=== PATIENT | female | born 1995 | race Caucasian/White ===

== ENCOUNTER → 2018-11-07 | Outpatient (CLI) | payer OTHER ==
--- NOTE | 2018-11-08 07:59 | Diagnostic Imaging Report ---
INDICATION: survey. TECHNIQUE: Multiple real-time grayscale images were obtained over the gravid uterus. COMPARISON: There are no prior studies available for comparison. FINDINGS: There is a single live fetus in breech presentation. heart motion was noted and a rate of 154 bpm was recorded. There were no abnormalities identified. The placenta is posterior and there is no previa. The amniotic fluid volume is within normal limits. The growth parameters are fairly uniform. The cervix was identified and measures 4.4 cm in length. IMPRESSION: 1. There is a single live fetus of approximately 19 weeks 2 days gestation +/- one week. The EDC is April 01, 2019. 2. There were no abnormalities identified. 3. The growth parameters are fairly uniform. Biometrical measurements are as follows: Biparietal 4.27 cm, age 19 weeks 0 days. Head circumference 16.31 cm, age 19 weeks 1 days. Abdominal circumference 13.73 cm, age 19 weeks 2 days. Femur length 2.97 cm, age 19 weeks 2 days. Sonographic estimate age: 19 weeks 2 days. Sonographic estimated date of delivery: 04/01/2019. Estimated Weight: 276 gm (+/- 40 gm). LMP percentile: 45%. heart rate: 154 beats per minute. number: 1 of 1. Dictated by: Dictated on workstation # [id number]
== END ==
LOC: RAD 14:20
PROVIDERS: ATTEND Obstetrics & Gynecology
DX: Z36.89 Encounter for other specified antenatal screening (principal); Z3A.19 19 weeks gestation of pregnancy
CPT/HCPCS: 76805

== ENCOUNTER 2019-03-09 12:42 | Inpatient (IN) | payer OTHER ==
[~2019-03-09] VITALS: Ht 162.6 cm; Wt 105.0 kg
[2019-03-09] VITALS (33 sets, daily range): BP systolic 91–165; BP diastolic 50–94
--- NOTE | 2019-03-09 12:20 | NUR ---
VANDANA QURESHI presented to unit from home, accompanied by Significant Other, with c/o CONTRACTIONS. VANDANA QURESHI weighed, gowned, voided, and to bed. EFHM and TOCO applied, VS taken. VANDANA QURESHI oriented to bed controls, call light, TV, heat, and A/C controls.
[2019-03-09] MEDS ORDERED: D5 LR IV SOLUTION 1,000 ML IV SCH (13:34)
[2019-03-09 13:45] LABS: BASOPHILS % (AUTO) 0 % (0-10); EOSINOPHILS # (AUTO) 0.2 10^3/uL (0.0-0.3); EOSINOPHILS % (AUTO) 2 % (0-10); HEMATOCRIT 38 % (35-52); HEMOGLOBIN 12.7 G/DL (11.5-16.0); LYMPHOCYTES # (AUTO) 1.6 X 10^3 (1.0-4.0); LYMPHOCYTES % (AUTO) 15 % (12-44); MEAN CORPUSCULAR HEMOGLOBIN 31 PG (25-34); MEAN CORPUSCULAR HGB CONC 33 G/DL (32-36); MEAN CORPUSCULAR VOLUME 93 FL (80-99); MEAN PLATELET VOLUME 11.9 FL (7.4-10.4); MONOCYTES # (AUTO) 0.7 X 10^3 (0.0-1.0); MONOCYTES % (AUTO) 7 % (0-12); NEUTROPHILS # (AUTO) 8.1 X 10^3 (1.8-7.8); NEUTROPHILS % (AUTO) 77 % (42-75); PLATELET COUNT 213 10^3/uL (130-400); RED CELL DISTRIBUTION WIDTH 13.2 % (10.0-14.5); WHITE BLOOD COUNT 10.5 10^3/uL (4.3-11.0)
[2019-03-09] MEDS ORDERED: MINERAL OIL CONCENTRATE 99.9% 15 ML UDC TOP PRN (13:45)
[2019-03-09] MEDS ORDERED: LIDOCAINE 1% INJ 20 ML 20 ML VIAL INJ PRN (13:45)
[2019-03-09 14:14] LABS: BILIRUBIN,URINE NEGATIVE (NEGATIVE); CLARITY,URINE CLEAR; COLOR,URINE YELLOW; GLUCOSE, URINE (UA) NEGATIVE (NEGATIVE); KETONES,URINE NEGATIVE (NEGATIVE); LEUKOCYTE ESTERASE ,URINE 1+ (NEGATIVE); NITRITE,URINE NEGATIVE (NEGATIVE); PH,URINE 6.5 (5-9); PROTEIN,URINE NEGATIVE (NEGATIVE)
[2019-03-09 14:24] LABS: BACTERIA,URINE FEW /HPF
[2019-03-09] MEDS ORDERED: LACTATED RINGERS 1,000 ML IV ONE (14:57)
[2019-03-09] MEDS ORDERED: SUFENTA 0.6MCG/ML BUPIVA 0.125 100 ML ONE (14:57)
[2019-03-09] MEDS ORDERED: BUPIVACAINE 0.25% 30 ML (SENSORCAINE) VIAL ONE (15:24)
[2019-03-09] MEDS ORDERED: fentaNYL INJECTION 100 MCG/2 ML AMP ONE (15:24)
--- NOTE | 2019-03-09 15:36 | NUR ---
Girma Roberts BOTTLE LABELER here for epidural placement. Procedure explained, consent reviewed and signed by anesthesia. Questions answered to patient's satisfaction. Time out taken to verify correct patient/procedure. Patient up to side of bed, assisted into sitting position. Betadine prep done x3 and sterile drape applied. Local done, see anesthesia record. Test dose given, see anesthesia record for drug and dosage. Epidural catheter secured in place. Epidural placement complete. Assisted back into bed, monitors adjusted. Epidural dosed, see anesthesia record. Epidural of Sufenta/Bupivicaine @ 12 cc/hr stated per pump. Patient tolerated procedure well.
[2019-03-09] MEDS ORDERED: LACTATED RINGERS 1,000 ML IV SCH (16:08)
[2019-03-09] MEDS ORDERED: METOCLOPRAMIDE INJ 10 MG/2 ML (REGLAN) IV PRN (16:15)
[2019-03-09] MEDS ORDERED: EPIDURAL (SUFENTA 0.6MCG/ML BUPIVA 0.125%) 100 ML BAG EPI PRN (16:15)
[2019-03-09] MEDS ORDERED: ONDANSETRON 4 MG/2 ML (SDV) Z0FRAN IV PRN (16:15)
[2019-03-09] MEDS ORDERED: diphenhydrAMINE 50 MG/ML INJ (BENADRYL) IV PRN (16:15)
[2019-03-09] MEDS ORDERED: NALOXONE 0.4 MG/ML 1 ML (NARCAN) VIAL IV PRN ×2 (16:15)
[2019-03-09] MEDS ORDERED: OXYTOCIN/NORMAL SALINE 500 ML IV SCH ×2 (16:47→18:40)
[2019-03-09] MEDS ORDERED: OXYTOCIN/NORMAL SALINE 500 ML IV ONE (16:47)
--- NOTE | 2019-03-09 17:00 | History & Physical-OB/GYN ---
History of Present Illness History of Present Illness Reason for visit/HPI Onset of labor at 36 weeks Date of Admission Mar 09, 2019 at 13:21 Date Seen by a Provider: Mar 09, 2019 Time Seen by a Provider: 16:45 I consulted on this patient on 03/09/19 16:56 Attending Physician Modesto Monae DO Admitting Physician Modesto Monae DO Consult Allergies and Home Medications Allergies Coded Allergies: Penicillins (Verified Allergy, Unknown, Hives, 03/09/19) As a child. Patient Home Medication List Home Medication List Reviewed: Yes Past Vpwyujn-Mwqdgs-Dlzqec Hx Patient Social History Marrital Status: Number of Children: 0 Number of living children: 0 Review of Systems Constitutional: see HPI Physical Exam Physical Exam Vital Signs Capillary Refill : Labs Laboratory Tests 03/09/19 12:55: Urine Color YELLOW, Urine Clarity CLEAR, Urine pH 6.5, Urine Specific [place] 1.015L, Urine Protein NEGATIVE, Urine Glucose (UA) NEGATIVE, Urine Ketones NEGATIVE, Urine Nitrite NEGATIVE, Urine Bilirubin NEGATIVE, Urine Urobilinogen 0.2, Urine Leukocyte Esterase 1+H, Urine RBC (Auto) NEGATIVE, Urine RBC NONE, Urine WBC 5-10H, Urine Squamous Epithelial Cells 2-5, Urine Crystals NONE, Urine Bacteria FEWH, Urine Casts NONE, Urine Mucus NEGATIVE, Urine Culture Indicated YES 03/09/19 13:15: White Blood Count 10.5, Red Blood Count 4.10L, Hemoglobin 12.7, Hematocrit 38, Mean Corpuscular Volume 93, Mean Corpuscular Hemoglobin 31, Mean Corpuscular Hemoglobin Concent 33, Red Cell Distribution Width 13.2, Platelet Count 213, Mean Platelet Volume 11.9H, Neutrophils (%) (Auto) 77H, Lymphocytes (%) (Auto) 15, Monocytes (%) (Auto) 7, Eosinophils (%) (Auto) 2, Basophils (%) (Auto) 0, Neutrophils # (Auto) 8.1H, Lymphocytes # (Auto) 1.6, Monocytes # (Auto) 0.7, Eosinophils # (Auto) 0.2, Basophils # (Auto) 0.0 General Appearance: No Apparent Distress, WD/WN Respiratory: Chest Non Tender, Lungs Clear Cardiovascular: Regular Rate, Rhythm, No Edema Abdominal: normal bowel sounds Vagina: WNL Extremity: Normal Inspection Assessment/Plan Assessment and Plan Intrauterine at 36 weeks 2. Labor Admission Diagnosis Admission Status: Inpatient Order (span 2 midnights) Reason for Inpatient Admission: Intrauteirne at 36 weeks 2. Labor MODESTO MONAE DO Mar 09, 2019 17:00 POS
[2019-03-09] MEDS: CATHETER FLUSH 10 ML SYR IV SCH ×2 (17:31→22:40)
--- NOTE | 2019-03-09 18:40 | OB Labor & Delivery Record ---
Vag Delivery Note Vag Delivery Note Date of Delivery: 03/09/19 Preoperative Diagnosis: Annabelle Cox is a (23 /Para / ,Gestational Age (wks)36with [] Postoperative Diagnosis: Same Surgeon: JR FLYNN Ethnic Origins Teacher: [None] Anesthesia: [Epidural] Delivery Type: [Normal Spontaneous Vaginal Delivery with Second Degree Perineal Laceration and Repair] Findings: [] Viable [Female] , apgars [8, 9], weight [] Lacerations: Second degree perineal Intact placenta with 3 vessel cord. No nuchal cord, body cord or shoulder dystocia Estimated Blood Loss: [300] ml Complications: None Condition: Stable Description of Procedure: The patient is a 23 year old female who presented [with the onset of labor]. She was admitted and informed consent was obtained. Her labor course was unremarkable. She progressed to complete dilatation and began to push. She was then set up for delivery. The 's head was delivered atraumatically in the [LARRY] position. The shoulders and remainder of the 's body were then delivered without difficulty. Upon delivery, the head was held below the level of the perineum and the mouth and nares were bulb suctioned. The cord was doubly clamped and cut and the was handed off to the pediatric staff where NRP protocol was follwed. An intact placenta with 3-vessel cord delivered via Sebastian and there was found to be minimal bleeding.~ Vigorous fundal massage was performed and the fundus was found to be firm. IV oxytocin was given. Examination of the vagina and perineum revealed a [seond degree perineal] laceration repaired in the usual fashion with 3-0 vicryl suture. Following the repair, sponge, instrument and needle counts were correct. Mom and baby were both in stable condition in the labor suite. Vitals - Labs Vital Signs - I&O Vital Signs Date Time Temp Pulse Resp B/P (MAP) Pulse Ox O2 Delivery O2 Flow Rate FiO2 03/09/19 15:51 101 18 124/84 (97) 98 Room Air 03/09/19 15:49 77 18 134/84 (101) 98 Room Air 03/09/19 15:46 76 18 133/79 (97) 98 Room Air 03/09/19 15:45 82 18 144/85 (104) 99 Room Air 03/09/19 15:43 78 18 139/81 (100) 98 Room Air 03/09/19 15:40 72 18 141/86 (104) 99 Room Air 03/09/19 15:36 76 18 165/93 (117) 99 Room Air 03/09/19 15:30 78 18 126/79 (95) Room Air 03/09/19 15:00 76 18 139/94 (109) Room Air 03/09/19 14:30 65 18 137/84 (101) Room Air 03/09/19 14:00 74 18 146/88 (107) Room Air 03/09/19 12:34 36.4 72 18 98 Room Air 03/09/19 12:30 36.4 72 18 139/80 (99) Room Air Labs Laboratory Tests 03/09/19 12:55: Urine Color YELLOW, Urine Clarity CLEAR, Urine pH 6.5, Urine Specific [place] 1.015L, Urine Protein NEGATIVE, Urine Glucose (UA) NEGATIVE, Urine Ketones NEGATIVE, Urine Nitrite NEGATIVE, Urine Bilirubin NEGATIVE, Urine Urobilinogen 0.2, Urine Leukocyte Esterase 1+H, Urine RBC (Auto) NEGATIVE, Urine RBC NONE, Urine WBC 5-10H, Urine Squamous Epithelial Cells 2-5, Urine Crystals NONE, Urine Bacteria FEWH, Urine Casts NONE, Urine Mucus NEGATIVE, Urine Culture Indicated YES 03/09/19 13:15: White Blood Count 10.5, Red Blood Count 4.10L, Hemoglobin 12.7, Hematocrit 38, Mean Corpuscular Volume 93, Mean Corpuscular Hemoglobin 31, Mean Corpuscular Hemoglobin Concent 33, Red Cell Distribution Width 13.2, Platelet Count 213, Mean Platelet Volume 11.9H, Neutrophils (%) (Auto) 77H, Lymphocytes (%) (Auto) 15, Monocytes (%) (Auto) 7, Eosinophils (%) (Auto) 2, Basophils (%) (Auto) 0, Neutrophils # (Auto) 8.1H, Lymphocytes # (Auto) 1.6, Monocytes # (Auto) 0.7, Eosinophils # (Auto) 0.2, Basophils # (Auto) 0.0 JR FLYNN DO Mar 09, 2019 18:40 POS
[2019-03-09] MEDS ORDERED: TETANUS,DIPTH,PERTUSS P/F (BOOSTRIX) 0.5 ML VIAL IM ONE (18:45)
[2019-03-09] MEDS ORDERED: BENZOCAINE/MENTHOL (DERMOPLAST) 56 ML CAN TP PRN (18:45)
[2019-03-09] MEDS ORDERED: MEASLES,MUMPS,RUBELLA 1 EA INJ SQ ONE (18:45)
[2019-03-09] MEDS ORDERED: DIBUCAINE (NUPERCAINAL) 1% OINT 30 GM TOP PRN (18:45)
[2019-03-09] MEDS ORDERED: WITCH HAZEL(TUCKS) 40 EA JAR TOP PRN (18:45)
--- NOTE | 2019-03-09 19:10 | NUR ---
Report to Carmelita Marion RN.
[2019-03-09] MEDS ORDERED: PREN1TAB79 PO (20:02)
[2019-03-09] MEDS ORDERED: ACET325T38 PO (20:02)
[2019-03-09] MEDS: DOCUSATE SODIUM 100 MG (COLACE) CAP PO SCH (20:46)
[2019-03-09] MEDS: IBUPROFEN 800 MG (MOTRIN) TAB PO SCH (20:46)
--- NOTE | 2019-03-09 21:19 | NUR ---
Pericare completed. ff2 below. moderate rubra. pad and panties applied. pt assisted to w'c and taken down to 312. pt ambulated to the bathroom. positive void. pericare completed. pt assisted to bed. orientated to room. call light within reach. s/o at bedside. will continue to monitor.
[2019-03-09] MEDS ORDERED: CATHETER FLUSH 10 ML SYR IV SCH (22:00)
[2019-03-10] MEDS: ACETAMINOPHEN 500 MG TAB (TYLENOL) PO SCH ×3 (01:24→12:07)
[2019-03-10 04:30] VITALS: BP 132/78
[2019-03-10] MEDS: IBUPROFEN 800 MG (MOTRIN) TAB PO SCH ×2 (05:15→14:08)
[2019-03-10 05:39] LABS: BASOPHILS % (AUTO) 0 % (0-10); EOSINOPHILS # (AUTO) 0.1 10^3/uL (0.0-0.3); EOSINOPHILS % (AUTO) 1 % (0-10); HEMATOCRIT 35 % (35-52); HEMOGLOBIN 11.7 G/DL (11.5-16.0); LYMPHOCYTES # (AUTO) 2.1 X 10^3 (1.0-4.0); LYMPHOCYTES % (AUTO) 15 % (12-44); MEAN CORPUSCULAR HEMOGLOBIN 32 PG (25-34); MEAN CORPUSCULAR HGB CONC 33 G/DL (32-36); MEAN CORPUSCULAR VOLUME 94 FL (80-99); MEAN PLATELET VOLUME 11.9 FL (7.4-10.4); MONOCYTES # (AUTO) 0.9 X 10^3 (0.0-1.0); MONOCYTES % (AUTO) 6 % (0-12); NEUTROPHILS # (AUTO) 10.6 X 10^3 (1.8-7.8); NEUTROPHILS % (AUTO) 78 % (42-75); PLATELET COUNT 202 10^3/uL (130-400); RED CELL DISTRIBUTION WIDTH 13.4 % (10.0-14.5); WHITE BLOOD COUNT 13.7 10^3/uL (4.3-11.0)
[2019-03-10] MEDS ORDERED: PRENATAL VITAMIN 1 EA TAB PO SCH (07:00)
[2019-03-10] MEDS ORDERED: DOCU100C37 PO (09:46)
[2019-03-10] MEDS ORDERED: OXC5T PO (09:46)
[2019-03-10] MEDS ORDERED: IBUP-1780 PO (09:46)
[2019-03-10] MEDS ORDERED: ACET-77 PO (09:46)
--- NOTE | 2019-03-10 09:52 | Discharge Summary ---
Diagnosis/Chief Complaint Date of Admission Mar 09, 2019 at 13:21 Date of Discharge March 10, 2019 Discharge Date: Mar 10, 2019 Discharge Time: 18:30 Admission Diagnosis Admission Diagnosis Intrauterine at 36 weeks 2. Labor Discharge Diagnosis Intrauterine at 36 weeks 2. Labor 3. Delivery Reason Hospital Visit Onset of labor at 36 weeks Discharge Summary Hospital Course Was the Problem List Reviewed?: Yes Hospital Course Ms. Cox was admitted for the onset of labor. Her labor was augmented with Pitocin. She received an Epidural for antepartum pain management. She spontaneously ruptured her membranes. She progressed to complete and delivered a healthy, viable . Her vital signs remained stable throughout her hospitalization. The remainder of her hospitalization was unremarkable. She will be discharge to home with prescriptions, instructions and a follow up appointment with Dr. Bentley. Labs Laboratory Tests 03/09/19 12:55: Urine Specific [place] 1.015L, Urine Leukocyte Esterase 1+H, Urine WBC 5-10H, Urine Bacteria FEWH 03/09/19 13:15: Red Blood Count 4.10L, Mean Platelet Volume 11.9H, Neutrophils (%) (Auto) 77H, Neutrophils # (Auto) 8.1H 03/10/19 05:23: Red Blood Count 3.71L, Mean Platelet Volume 11.9H, Neutrophils (%) (Auto) 78H, Neutrophils # (Auto) 10.6H, White Blood Count 13.7H Procedures None. Discharge Physical Examination Allergies: Coded Allergies: Penicillins (Verified Allergy, Unknown, Hives, 03/09/19) As a child. Vitals & I&Os Vital Signs Date Time Temp Pulse Resp B/P (MAP) Pulse Ox O2 Delivery O2 Flow Rate FiO2 03/10/19 04:30 36.5 77 18 132/78 (96) Room Air 03/09/19 18:15 98 General Appearance: Alert, Oriented X3, Cooperative, No Acute Distress HEENT: Atraumatic Respiratory: Clear to Auscultation, Normal Air Movement Cardiovascular: Regular Rate, No Murmurs Abdominal: Normal Bowel Sounds, No Tenderness Extremities: No Clubbing, No Cyanosis Skin: No Rashes Neuro: Normal Gait, Normal Speech Psych/Mental Status: Mental Status NL Discharge Home Medications Reviewed and agree with Discharge Medication list on patient's Discharge Instruction sheet Instructions to Patient/Family Please see electronic discharge instructions given to patient. Clinical Quality Measures DVT/VTE Risk/Contraindication: Risk Factor Score Per Nursin RFS Level Per Nursing on Admit: 1=Low/No VTE PPX JR FLYNN DO Mar 10, 2019 09:52 POS
--- NOTE | 2019-03-10 09:57 | Anesthesia-Regional Post-Op ---
Regional Patient Condition Mental Status: Alert, Oriented x3 Circulation: Same as Pre-Op Headache: Absent Sensation: Full Recovery Motor Block: Absent Post Op Complications Complications None Follow Up Care/Instructions Patient Instructions None needed. Anesthesia/Patient Condition Patient is doing well, no complaints, stable vital signs, no apparent adverse anesthesia problems. No complications reported per nursing. LORRI QUIROS CRNA Mar 10, 2019 09:57 POS
[2019-03-10 10:07] VITALS: BP 135/67
[2019-03-10] MEDS: DOCUSATE SODIUM 100 MG (COLACE) CAP PO SCH (10:07)
--- NOTE | 2019-03-10 10:07 | NUR ---
AM shift assessment completed and vital signs obtained, see interventions. Scheduled PNV and Colace PO given. Plan of care reviewed, patient verbalizes understanding and questions answered.
[2019-03-10 14:08] VITALS: BP 114/70
[2019-03-10] MEDS: CATHETER FLUSH 10 ML SYR IV SCH (15:16)
--- NOTE | 2019-03-10 15:58 | NUR ---
Discharge instructions and medications reviewed with patient both written and verbally. Patient verbalizes understanding and questions answered. Prescriptions called to [facility]. 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
--- NOTE | 2019-03-10 18:30 | NUR ---
Patient discharged at this time to "Boarder Status."
== END 2019-03-10 18:30 | disposition home or self-care (01) | DRG 807 ==
LOC: WSo 12:42 → LDRP 12:42 → WSo 13:21 → LDRP 14:22
PROVIDERS: ADMIT Obstetrics & Gynecology; ATTEND Obstetrics & Gynecology
PROC: 10E0XZZ Delivery of Products of Conception, External Approach (ICD-10-PCS; principal; 2019-03-09)
PROC: 0KQM0ZZ Repair Perineum Muscle, Open Approach (ICD-10-PCS; 2019-03-09)
DX: O60.14X0 Preterm labor third trimester with preterm delivery third trimester, not applicable or unspecified (principal); O70.1 Second degree perineal laceration during delivery; Z37.0 Single live birth; Z3A.36 36 weeks gestation of pregnancy
CPT/HCPCS: 36415; 81000; 85025; 86850; 86900; 86901; 87088; 99212